=== PATIENT | male | born 1970 | race Asian ===

== ENCOUNTER 2018-09-14 03:56 | Emergency (ER) | payer BC, OTHER ==
[~2018-09-14] VITALS: Ht 167.6 cm; Wt 77.8 kg
[2018-09-14] MEDS ORDERED: ATOR10TA9 PO (04:15)
[2018-09-14] MEDS ORDERED: METF-688 PO (04:15)
--- NOTE | 2018-09-14 04:16 | NUR ---
assessment made. chart up for MD to see. patient states having memory loss tonight. 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 Hx of Diabetes.
--- NOTE | 2018-09-14 05:03 | NUR ---
urine sent to lab. patient to CT scan.
--- NOTE | 2018-09-14 05:18 | NUR ---
back from CT scan. blood drawn. EKG in progress.
[2018-09-14 05:23] LABS: MICROSCOPIC AUTO
[2018-09-14 05:24] LABS: CULTURE INDICATED? NO
[2018-09-14 05:26] LABS: BASOPHILS # (AUTO) 0.04 x10^3/uL (0-0.1); BASOPHILS % (AUTO) 1 % (0-1); EOSINOPHILS # (AUTO) 0.18 x10^3/uL (0-0.4); EOSINOPHILS % (AUTO) 3 % (1-7); LYMPHOCYTES # (AUTO) 1.43 x10^3/uL (1-3.4); LYMPHOCYTES % (AUTO) 22 % (22-44); MD NO; MEAN CORPUSCULAR HEMOGLOBIN 30.2 pg (27.5-34.5); MEAN CORPUSCULAR HGB CONC 33.8 g/dL (33.2-36.2); MEAN CORPUSCULAR VOLUME 89.2 fL (81-97); MEAN PLATELET VOLUME 6.3 fL (7.4-10.4); MONOCYTES # (AUTO) 0.31 x10^3/uL (0.2-0.8); MONOCYTES % (AUTO) 5 % (2-9); NEUTROPHILS # (AUTO) 4.61 x10^3/uL (1.8-6.8); NEUTROPHILS % (AUTO) 70 % (42-75); PLATELET COUNT 230 x10^3/uL (130-400); RED BLOOD COUNT 5.05 x10^6/uL (4.38-5.82); RED CELL DISTRIBUTION WIDTH 12.9 % (9.4-14.8)
[2018-09-14 05:33] LABS: ALANINE AMINOTRANSFERASE 29 U/L (12-78); ALBUMIN 4.5 g/dL (3.4-5.0); ANION GAP 8 mmol/L (5-15); CALCIUM 9.3 mg/dL (8.5-10.1); CHLORIDE 109 mmol/L (98-107); CREATININE 0.89 mg/dL (0.7-1.3)
[2018-09-14 05:35] LABS: ALKALINE PHOSPHATASE 74 U/L (45-117); BILIRUBIN,TOTAL 0.6 mg/dL (0.2-1.0); TOTAL PROTEIN 7.7 g/dL (6.4-8.2)
--- NOTE | 2018-09-14 06:55 | NUR ---
OBTAINED REPORT, CARE OF PT ASSUMED.
--- NOTE | 2018-09-14 06:56 | NUR ---
labs and imaging done. chart up for re-evaluation.
--- NOTE | 2018-09-14 07:06 | NUR ---
report to Jodi RN's
--- NOTE | 2018-09-14 07:33 | NUR ---
POC DISCUSSED WITH PT AND HE VERBALIZED UNDERSTANDING. PT RESTING IN BED, DENIES NEEDS. VSS. NAD.
[2018-09-14 07:55] VITALS: BP 132/76
--- NOTE | 2018-09-14 07:56 | NUR ---
POC FOR DISCHARGE EXPLAINED TO PT AND HE AGREED WITH PLAN. PT VERBALIZED UNDERSTANDING OF ALL INSTRUCTIONS. PER PT REPORT, HIS SYMPTOMS HAVE RESOLVED AND HE NO LONGER FEELS CONFUSED. PT IS A/O X 4 AND STEADY ON FEET, APPROPRIATE FOR DISCHARGE. NO IV IN PLACE.VSS. NAD.
--- NOTE | 2018-09-14 08:08 | NUR ---
TASK RN: Patient/Caregiver given discharge instructions and they have confirmed that they understand the instructions. Patient ambulatory with steady gait.
== END 2018-09-14 08:09 | disposition home or self-care (01) ==
LOC: ED 05:21
DX: R41.82 Altered mental status, unspecified (principal); G23.8 Other specified degenerative diseases of basal ganglia; E11.9 Type 2 diabetes mellitus without complications
CPT/HCPCS: 36415; 70450; 71045; 80053; 81001; 82962; 85025; 93005; 99284